=== PATIENT | female | born 1940 | race Caucasian/White ===

== ENCOUNTER 2017-11-28 09:08 | Emergency (ER) | payer MEDICARE, BC ==
[~2017-11-28] VITALS: Ht 172.7 cm; Wt 135.0 kg
[~2017-11-28 09:08] MED LIST: ACET-890 PO; ALLO100T15 PO; ASCO125T PO; ATOR20TA66 PO; ATR0.5NEB IH; CALC-965 PO; CARV-50 PO; CHOL100046 PO; CHRO400T8 PO; CLOP75TA35 PO; CRAN300T PO; FLUT1DIS7 INH; GABA-532 PO; GLIM1TAB46 PO; GLUC-133 PO; LORA10TA7 PO; LOSA25TA96 PO; MAGN250T2 PO; MAGN500C16 PO; MOME17SP BOTHNARES; MONT10TA24 PO; NITR0.4T48 SL; OMEG500C PO; POLY119P2 PO; RALO60TA55 PO; SPIR25TA3 PO; TRAM50TA2 PO; TRAV5DRO OP; VITA150T PO; [UNRECOGNIZED DRUG - CODE] INH; [UNRECOGNIZED DRUG - CODE] PO
[2017-11-28] MEDS ORDERED: ipratropium/albuterol 3ml nebule NEB ONE (09:30)
[2017-11-28 09:51] LABS: BASOPHILS # (AUTO) 0.2 X10'3 (0-0.2); BASOPHILS % (AUTO) 1.1 % (0-1); EOSINOPHILS % (AUTO) 0 % (0-6); HEMATOCRIT 36.8 % (35.0-45.0); HEMOGLOBIN 12.3 g/dl (12.0-16.0); LYMPHOCYTES # (AUTO) 0.7 X10'3 (1.1-4.8); MEAN CORPUSCULAR HEMOGLOBIN 31.5 PG (27.0-31.0); MEAN CORPUSCULAR HGB CONC 33.5 % (33.0-36.5); MEAN CORPUSCULAR VOLUME 94.1 FL (78-98); MEAN PLATELET VOLUME 7.3 FL (7.4-10.4); MONOCYTES # (AUTO) 0.6 X10'3 (0-0.9); MONOCYTES % (AUTO) 3.7 % (2-12); NEUTROPHILS # (AUTO) 15.6 X10'3 (1.8-7.7); NEUTROPHILS % (AUTO) 91.2 % (42-75); PLATELET COUNT 317 X10'3 (140-440); RED BLOOD COUNT 3.91 X10'6 (4.20-5.60); RED CELL DISTRIBUTION WIDTH 14.1 % (11.5-14.5); WHITE BLOOD COUNT 17.1 X10'3 (4.5-11.0)
[2017-11-28 10:01] LABS: PARTIAL THROMBOPLASTIN TIME 29 SECONDS (22-32); PROTHROMBIN TIME 10.7 SECONDS (9.0-12.0)
[2017-11-28 10:24] LABS: ALBUMIN 2.4 G/DL (3.4-5.0); ALBUMIN/GLOBULIN RATIO 0.5 (1.1-1.5); ALKALINE PHOSPHATASE 83 IU/L (46-116); ANION GAP 8 (8-16); ASPARTATE AMINO TRANSFERASE 19 U/L (10-37); BILIRUBIN,TOTAL 0.4 MG/DL (0.1-1.0); BLOOD UREA NITROGEN 19 MG/DL (7-18); BUN/CREATININE RATIO 14.6 (6.6-38.0); CHLORIDE 102 MMOL/L (99-107); GLUCOSE 285 MG/DL (70-104); POTASSIUM 4.4 MMOL/L (3.5-5.1); SODIUM 136 MMOL/L (135-145); TOTAL CARBON DIOXIDE 25.9 MMOL/L (24-32); TOTAL PROTEIN 7.4 G/DL (6.4-8.2); eGFR 40 ML/MIN
[2017-11-28] MEDS ORDERED: METH4TAB81 PO (10:30)
[2017-11-28] MEDS ORDERED: LEVO750T21 PO (10:30)
[2017-11-28] MEDS ORDERED: FLUC150T5 PO (11:06)
[2017-11-28 11:19] VITALS: BP 126/61
[2017-11-28 11:27] LABS: ALANINE AMINOTRANSFERASE 19 U/L (12-78)
== END 2017-11-28 11:22 | disposition home or self-care (01) ==
LOC: ER 09:09
DX: J98.01 Acute bronchospasm (principal); J40 Bronchitis, not specified as acute or chronic; E11.9 Type 2 diabetes mellitus without complications; I10 Essential (primary) hypertension; I48.91 Unspecified atrial fibrillation; M10.9 Gout, unspecified; I25.2 Old myocardial infarction; Z98.890 Other specified postprocedural states; Z79.84 Long term (current) use of oral hypoglycemic drugs; Z88.5 Allergy status to narcotic agent; Z88.8 Allergy status to other drugs, medicaments and biological substances
CPT/HCPCS: 36415; 71045; 80053; 82948; 83605; 83880; 84484; 85025; 85610; 85730; 87040; 93005; 94640; 94760; 99285

== ENCOUNTER 2017-12-09 01:17 | Inpatient (IN) | payer MEDICARE, BC ==
[~2017-12-09] VITALS: Ht 172.7 cm; Wt 134.1 kg
[~2017-12-09 01:17] MED LIST changes: +FLUC150T5 PO; +METH4TAB81 PO
[2017-12-09 02:13] LABS: BASOPHILS % (AUTO) 0.3 % (0-1); EOSINOPHILS # (AUTO) 0.3 X10'3 (0-0.9); EOSINOPHILS % (AUTO) 2.2 % (0-6); HEMATOCRIT 37.5 % (35.0-45.0); HEMOGLOBIN 12.5 g/dl (12.0-16.0); LYMPHOCYTES % (AUTO) 24.9 % (21-51); MEAN CORPUSCULAR HEMOGLOBIN 31.6 PG (27.0-31.0); MEAN CORPUSCULAR HGB CONC 33.3 % (33.0-36.5); MEAN CORPUSCULAR VOLUME 94.8 FL (78-98); MEAN PLATELET VOLUME 7.3 FL (7.4-10.4); MONOCYTES # (AUTO) 0.6 X10'3 (0-0.9); MONOCYTES % (AUTO) 4.9 % (2-12); NEUTROPHILS # (AUTO) 8.2 X10'3 (1.8-7.7); NEUTROPHILS % (AUTO) 67.7 % (42-75); PLATELET COUNT 265 X10'3 (140-440); RED BLOOD COUNT 3.96 X10'6 (4.20-5.60); RED CELL DISTRIBUTION WIDTH 14.6 % (11.5-14.5); WHITE BLOOD COUNT 12.2 X10'3 (4.5-11.0)
[2017-12-09 02:18] LABS: ALANINE AMINOTRANSFERASE 20 U/L (12-78); ALBUMIN 2.8 G/DL (3.4-5.0); ALBUMIN/GLOBULIN RATIO 0.7 (1.1-1.5); ALKALINE PHOSPHATASE 82 IU/L (46-116); ANION GAP 5 (8-16); ASPARTATE AMINO TRANSFERASE 13 U/L (10-37); BILIRUBIN,TOTAL 0.3 MG/DL (0.1-1.0); BLOOD UREA NITROGEN 36 MG/DL (7-18); CALCIUM 9.4 MG/DL (8.5-10.1); CHLORIDE 101 MMOL/L (99-107); GLUCOSE 239 MG/DL (70-104); MAGNESIUM 1.4 MG/DL (1.5-2.4); POTASSIUM 4.5 MMOL/L (3.5-5.1); SODIUM 138 MMOL/L (135-145); TOTAL CARBON DIOXIDE 32.4 MMOL/L (24-32); eGFR 33 ML/MIN
[2017-12-09] MEDS ORDERED: DULA1.5P (03:00)
[2017-12-09] MEDS ORDERED: MYCOL30CR TP (03:02)
[2017-12-09] MEDS ORDERED: FURO80TA87 PO (03:05)
[2017-12-09] MEDS ORDERED: POTA8TAB3 (03:13)
[2017-12-09] MEDS ORDERED: RANI150C4 PO (03:15)
[2017-12-09] MEDS ORDERED: METO10TA8 PO (03:21)
[2017-12-09] MEDS ORDERED: FLUT1DIS7 INH (03:23)
[2017-12-09] MEDS ORDERED: ASPI-1265 PO (03:23)
[2017-12-09] MEDS ORDERED: APIX5TAB3 PO (03:34)
[2017-12-09] MEDS ORDERED: magnesium hydroxide 30ml (MOM) UD suspension PO PRN (05:05)
[2017-12-09] MEDS ORDERED: mag hydrox/Alum hydrox/simeth 30ml oral suspension PO PRN (05:05)
[2017-12-09] MEDS ORDERED: acetaminophen 325mg tablet PO PRN ×2 (05:05→08:00)
[2017-12-09] MEDS ORDERED: ondansetron/PF 4mg/2ml inj IV PRN (05:05)
[2017-12-09] MEDS ORDERED: traMADol 50MG tablet PO PRN (05:10)
[2017-12-09] MEDS ORDERED: albuterol 2.5 MG/3 ML nebule NEB PRN (05:10)
[2017-12-09] MEDS ORDERED: GABA-532 PO (06:46)
[2017-12-09] MEDS ORDERED: LACT1CAP65 PO (06:59)
[2017-12-09] MEDS ORDERED: NIT10P TD (07:00)
[2017-12-09] MEDS ORDERED: MULT-1181 (07:02)
[2017-12-09 08:00] VITALS: BP 133/90
[2017-12-09] MEDS ORDERED: apixaban 5mg tablet PO SCH (08:00)
[2017-12-09] MEDS ORDERED: loratadine 10mg tablet PO SCH (08:00)
[2017-12-09] MEDS ORDERED: allopurinol 100mg tablet PO SCH (08:00)
[2017-12-09] MEDS ORDERED: fluticasone/vilanterol 200mcg/25mcg inhaler IH SCH (08:00)
[2017-12-09] MEDS ORDERED: metolazone 2.5mg tablet PO SCH (08:00)
[2017-12-09] MEDS ORDERED: CIT PO SCH (08:00)
[2017-12-09] MEDS ORDERED: aspirin 81mg tab.chew PO SCH (08:00)
[2017-12-09] MEDS ORDERED: furosemide 40mg tablet PO SCH (08:00)
[2017-12-09] MEDS ORDERED: carVEDilol 12.5mg tablet PO SCH (08:00)
[2017-12-09] MEDS ORDERED: losartan 25mg tablet PO SCH (08:00)
[2017-12-09] MEDS ORDERED: ascorbic acid 500mg tablet PO SCH (08:00)
[2017-12-09] MEDS ORDERED: VITAMIN D3 PO SCH (08:00)
[2017-12-09] MEDS ORDERED: spironolactone 25 MG tablet PO SCH (08:00)
[2017-12-09] MEDS ORDERED: raloxifene 60mg tablet PO SCH (08:00)
[2017-12-09] MEDS ORDERED: non-formulary drug (Cranberry Extract (Cranberry) 2 TAB) PO SCH (08:00)
[2017-12-09] MEDS ORDERED: vitamin D (cholecalciferol) 1,000 unit tablet PO SCH (08:00)
[2017-12-09] MEDS ORDERED: magnesium oxide 400mg tablet PO SCH (08:00)
[2017-12-09] MEDS ORDERED: vitamin B comp w/Vit. C tab 1 TAB TABLET PO SCH (08:00)
[2017-12-09] MEDS ORDERED: atorvastatin 20mg tablet PO SCH (08:00)
[2017-12-09] MEDS ORDERED: CALCIUM CARB PO SCH (08:00)
[2017-12-09] MEDS ORDERED: famotidine 20mg tablet PO SCH (08:00)
[2017-12-09 08:22] LABS: HEMOGLOBIN A1C 7.7 % (4.5-6.2)
[2017-12-09] MEDS: gabapentin 300mg capsule PO SCH ×2 (09:35→13:04)
[2017-12-09] MEDS: potassium chloride 8mEq ER tablet PO SCH ×2 (09:37→13:04)
[2017-12-09 11:00] VITALS: BP 118/73
[2017-12-09] MEDS ORDERED: montelukast 10mg tablet PO SCH (21:00)
[2017-12-09] MEDS ORDERED: latanoprost 0.005% 2.5ml ophthalmic drops EACHEYE SCH (21:00)
[2017-12-09] MEDS ORDERED: gabapentin 300mg capsule PO SCH (21:00)
== END 2017-12-09 15:10 | disposition home or self-care (01) | DRG 313 ==
LOC: ER 01:17 → ED HOLD 05:03 → PCU 3S 07:42
PROVIDERS: ADMIT Internal Medicine; ATTEND Internal Medicine
DX: R07.89 Other chest pain (principal); I25.10 Atherosclerotic heart disease of native coronary artery without angina pectoris; E11.22 Type 2 diabetes mellitus with diabetic chronic kidney disease; I48.91 Unspecified atrial fibrillation; Z68.41 Body mass index [BMI] 40.0-44.9, adult; E66.01 Morbid (severe) obesity due to excess calories; E03.9 Hypothyroidism, unspecified; E78.5 Hyperlipidemia, unspecified; I12.9 Hypertensive chronic kidney disease with stage 1 through stage 4 chronic kidney disease, or unspecified chronic kidney disease; J45.909 Unspecified asthma, uncomplicated; M10.9 Gout, unspecified; M19.90 Unspecified osteoarthritis, unspecified site; H40.9 Unspecified glaucoma; M81.0 Age-related osteoporosis without current pathological fracture; N18.9 Chronic kidney disease, unspecified; I25.2 Old myocardial infarction; Z90.710 Acquired absence of both cervix and uterus; Z95.5 Presence of coronary angioplasty implant and graft; Z88.5 Allergy status to narcotic agent; Z88.8 Allergy status to other drugs, medicaments and biological substances; Z79.899 Other long term (current) drug therapy; Z79.82 Long term (current) use of aspirin
CPT/HCPCS: 36415; 71045; 80053; 82948; 83036; 83735; 83880; 84484; 85025; 87070; 93005; 94640; 94760; 99285

== ENCOUNTER 2018-02-16 11:16 | Outpatient (CLI) | payer MEDICARE, BC ==
[~2018-02-16 11:16] MED LIST changes: +APIX5TAB3 PO; +ASPI-1265 PO; -ATR0.5NEB IH; -CHRO400T8 PO; -CLOP75TA35 PO; +DULA1.5P; -FLUC150T5 PO; +FURO80TA87 PO; -GLIM1TAB46 PO; +LACT1CAP65 PO; -MAGN250T2 PO; -METH4TAB81 PO; +METO10TA8 PO; -MOME17SP BOTHNARES; +MULT-1181; +MYCOL30CR TP; +NIT10P TD; -NITR0.4T48 SL; -POLY119P2 PO; +POTA8TAB3; +RANI150C4 PO; -[UNRECOGNIZED DRUG - CODE] PO
== END 2018-02-16 23:59 | disposition home or self-care (01) ==
LOC: VAS 11:16
PROVIDERS: ATTEND Family Medicine
DX: R60.0 Localized edema (principal); M25.472 Effusion, left ankle
CPT/HCPCS: 71046; 93971

== ENCOUNTER 2018-02-25 17:52 | Outpatient (CLI) | payer MEDICARE, BC | END 2018-02-25 23:59 | disposition home or self-care (01) | LOC: LAB SPEC 17:52 | PROVIDERS: ATTEND Family Medicine | DX: R30.0 Dysuria (principal); S91.109A Unspecified open wound of unspecified toe(s) without damage to nail, initial encounter; I10 Essential (primary) hypertension; E11.9 Type 2 diabetes mellitus without complications; J45.909 Unspecified asthma, uncomplicated; Z85.828 Personal history of other malignant neoplasm of skin; X58.XXXA Exposure to other specified factors, initial encounter; Y93.89 Activity, other specified; Y92.89 Other specified places as the place of occurrence of the external cause; Y99.8 Other external cause status | CPT/HCPCS: 87077; 87088; 87186 ==

== ENCOUNTER 2018-05-31 04:02 | Outpatient (CLI) | payer MEDICARE, BC ==
[~2018-05-31 04:02] MED LIST changes: -SPIR25TA3 PO; +SPIR25TA5 PO
== END 2018-05-31 23:59 | disposition home or self-care (01) ==
LOC: DIABETIC 04:02
PROVIDERS: ATTEND Family Medicine
DX: E11.65 Type 2 diabetes mellitus with hyperglycemia (principal); E11.22 Type 2 diabetes mellitus with diabetic chronic kidney disease; I12.9 Hypertensive chronic kidney disease with stage 1 through stage 4 chronic kidney disease, or unspecified chronic kidney disease; N18.3 Chronic kidney disease, stage 3 (moderate); E03.9 Hypothyroidism, unspecified; I25.2 Old myocardial infarction; J45.909 Unspecified asthma, uncomplicated; N18.9 Chronic kidney disease, unspecified; M10.9 Gout, unspecified; E78.5 Hyperlipidemia, unspecified; Z79.82 Long term (current) use of aspirin; Z79.899 Other long term (current) drug therapy; Z95.1 Presence of aortocoronary bypass graft
CPT/HCPCS: G0108